=== PATIENT | female | born 1940 | race Caucasian/White ===

== ENCOUNTER 2016-09-08 17:45 | Inpatient (IN) | payer MEDICARE, OTHER ==
[~2016-09-08] VITALS: Ht 167.6 cm; Wt 78.9 kg
[2016-09-08] MEDS ORDERED: LURA60TA PO (18:54)
[2016-09-08] MEDS ORDERED: MELO-264 PO (18:54)
[2016-09-08] MEDS ORDERED: FLUO-119 PO (18:54)
[2016-09-08] MEDS ORDERED: ATOR10TA PO (18:54)
[2016-09-08] MEDS ORDERED: GABA-532 PO (18:54)
[2016-09-08] MEDS ORDERED: DIPH25CA6 PO (18:54)
[2016-09-08] MEDS ORDERED: AMLO10TA2 PO (18:54)
[2016-09-08] MEDS ORDERED: VALS1TAB50 PO (18:54)
[2016-09-08 19:02] LABS: BASOPHILS % (AUTO) 0.4 % (0.0-2.0); DIFF TOTAL % 100 %; EOSINOPHILS # (AUTO) 0.3 /CMM (0.0-0.7); HEMATOCRIT 36 % (33-45); HEMOGLOBIN 11.9 g/dL (11.5-14.8); LYMPHOCYTES # (AUTO) 1.7 /CMM (0.8-4.8); LYMPHOCYTES % (AUTO) 25.6 % (20.0-44.0); MEAN CORPUSCULAR HEMOGLOBIN 28 PG (26.0-33.0); MEAN CORPUSCULAR HGB CONC 33 g/dl (31.0-36.0); MEAN CORPUSCULAR VOLUME 84 fL (82-100); MONOCYTES # (AUTO) 0.4 /CMM (0.1-1.30); MONOCYTES % (AUTO) 6.5 % (2.0-12.0); NEUTROPHILS # (AUTO) 4.2 /CMM (1.8-8.9); NEUTROPHILS % (AUTO) 62.5 % (43.0-81.0); PLATELET COUNT (AUTO) 197 /CMM (150-450); RED BLOOD CELL COUNT(AUTO) 4.28 MIL/uL (4.0-5.2); WHITE BLOOD COUNT (AUTO) 6.6 K/uL (4.3-11.0)
[2016-09-08 19:16] LABS: ANION GAP 14 (5-14); CALCIUM, SERUM 9.5 mg/dL (8.5-10.1); CARBON DIOXIDE 25 mmol/L (21-32); CHLORIDE 107 mmol/L (98-107); CREATININE 1.7 mg/dL (0.6-1.3); GLUCOSE 107 mg/dL (74-106); POTASSIUM 4.2 mmol/L (3.5-5.1); SODIUM SERUM 142 mmol/L (136-145); UREA NITROGEN, BLOOD 26 mg/dL (7-18)
[2016-09-08 19:22] LABS: ALANINE AMINOTRANSFERASE 13 U/L (12-78); ALBUMIN 3.3 g/dL (3.4-5.0); ASPARTATE AMINOTRANSFERASE 14 U/L (15-37); BILIRUBIN,DIRECT 0.1 mg/dL (0.0-0.2); BILIRUBIN,TOTAL 0.4 mg/dL (0.2-1.0); INDIRECT BILIRUBIN 0.3 mg/dL (0.0-1.1); TOTAL PROTEIN, SERUM 7.4 g/dL (6.4-8.2)
[2016-09-08 19:23] LABS: ACETAMINOPHEN < 10 ug/ml (10-30); SALICYLATE 1.3 mg/dL (2.8-20.0)
[2016-09-08 20:32] LABS: KETONES,URINE Negative (NEGATIVE); LEUKOCYTE ESTERASE ,URINE Moderate (NEGATIVE)
[2016-09-08 20:33] LABS: ADD UA MICROSCOPIC YES
[2016-09-08 20:44] LABS: ADD URINE CULTURE YES; RBC,URINE 21-50 /HPF (0-2); WBC,URINE 21-50 /HPF (0-3)
[2016-09-08 20:50] LABS: CANNABINOID, URINE NEGATIVE (NEGATIVE); PHENCYCLIDINE SCREEN,URINE NEGATIVE (NEGATIVE)
[2016-09-08] MEDS ORDERED: TEMAZEPAM 7.5 MG CAPSULE PO PRN (22:00)
[2016-09-08] MEDS ORDERED: MAGNESIUM HYDROXIDE 30 ML UDC PO PRN (22:00)
[2016-09-08] MEDS ORDERED: ACETAMINOPHEN 325 MG TABLET PO PRN (22:00)
[2016-09-08] MEDS ORDERED: MAG HYDROX/AL HYDROX/SIMETH 30 ML UDC PO PRN (22:00)
[2016-09-08] MEDS ORDERED: clonazePAM 0.5 MG TABLET PO PRN (22:00)
[2016-09-08] MEDS ORDERED: TEMAZEPAM 7.5 MG CAPSULE ONE (22:49)
[2016-09-08] MEDS: TEMAZEPAM 7.5 MG CAPSULE PO PRN (23:10)
[2016-09-09] MEDS ORDERED: GABAPENTIN 100 MG CAPSULE PO PRN (01:00)
[2016-09-09 06:03] VITALS: BP 150/60
[2016-09-09 07:06] LABS: BASOPHILS % (AUTO) 0.3 % (0.0-2.0); EOSINOPHILS # (AUTO) 0.3 /CMM (0.0-0.7); EOSINOPHILS % (AUTO) 4.2 % (0.0-6.0); HEMATOCRIT 36 % (33-45); HEMOGLOBIN 11.8 g/dL (11.5-14.8); LYMPHOCYTES # (AUTO) 1.7 /CMM (0.8-4.8); LYMPHOCYTES % (AUTO) 26.7 % (20.0-44.0); MEAN CORPUSCULAR HEMOGLOBIN 28 PG (26.0-33.0); MEAN CORPUSCULAR HGB CONC 33 g/dl (31.0-36.0); MEAN CORPUSCULAR VOLUME 85 fL (82-100); MONOCYTES # (AUTO) 0.4 /CMM (0.1-1.30); MONOCYTES % (AUTO) 6.8 % (2.0-12.0); NEUTROPHILS # (AUTO) 3.9 /CMM (1.8-8.9); PLATELET COUNT (AUTO) 206 /CMM (150-450); RED BLOOD CELL COUNT(AUTO) 4.24 MIL/uL (4.0-5.2); WHITE BLOOD COUNT (AUTO) 6.3 K/uL (4.3-11.0)
[2016-09-09 07:12] LABS: ALBUMIN 3.3 g/dL (3.4-5.0); BILIRUBIN,TOTAL 0.4 mg/dL (0.2-1.0); CALCIUM, SERUM 9.4 mg/dL (8.5-10.1); CREATININE 1.6 mg/dL (0.6-1.3); POTASSIUM 4.4 mmol/L (3.5-5.1)
[2016-09-09 08:00] VITALS: BP 144/80
[2016-09-09] MEDS ORDERED: Fluoxetine 10 mg capsule PO SCH (09:30)
[2016-09-09] MEDS: ATORVASTATIN 10 MG TABLET PO SCH (10:36)
[2016-09-09] MEDS: MELOXICAM 7.5 MG TABLET PO SCH (10:37)
[2016-09-09] MEDS: AMLODIPINE BESYLATE 10 MG TABLET PO SCH (10:37)
[2016-09-09] MEDS: Fluoxetine 10 mg capsule PO SCH (12:40)
[2016-09-09] MEDS: OLANZAPINE 5 MG/TAB.RAPDIS PO SCH (12:40)
[2016-09-09] MEDS: HYDROCHLOROTHIAZIDE 25 MG TABLET PO SCH (12:40)
[2016-09-09] MEDS: VALSARTAN 80 MG TABLET PO SCH (12:41)
[2016-09-09 16:14] VITALS: BP 149/74
[2016-09-09 20:12] VITALS: BP 140/90
[2016-09-10 08:00] VITALS: BP 121/63
[2016-09-10] MEDS: Fluoxetine 10 mg capsule PO SCH (08:59)
[2016-09-10] MEDS: MELOXICAM 7.5 MG TABLET PO SCH (08:59)
[2016-09-10] MEDS: ATORVASTATIN 10 MG TABLET PO SCH (09:00)
[2016-09-10] MEDS: VALSARTAN 80 MG TABLET PO SCH (09:00)
[2016-09-10] MEDS: HYDROCHLOROTHIAZIDE 25 MG TABLET PO SCH (09:01)
[2016-09-10] MEDS: OLANZAPINE 5 MG/TAB.RAPDIS PO SCH (09:01)
[2016-09-10] MEDS: AMLODIPINE BESYLATE 10 MG TABLET PO SCH (09:01)
[2016-09-10 16:00] VITALS: BP 133/67
[2016-09-10] MEDS ORDERED: PHENAZOPYRIDINE HCL 200 MG TABLET PO PRN (16:00)
[2016-09-10] MEDS: LEVOFLOXACIN (250MG) 250 MG TABLET PO SCH (17:45)
[2016-09-10 20:00] VITALS: BP 128/86
[2016-09-10] MEDS: TEMAZEPAM 7.5 MG CAPSULE PO PRN (22:24)
[2016-09-11 07:23] LABS: CALCIUM, SERUM 9.1 mg/dL (8.5-10.1); CREATININE 2.3 mg/dL (0.6-1.3); POTASSIUM 4.1 mmol/L (3.5-5.1)
[2016-09-11 08:00] VITALS: BP 132/72
[2016-09-11] MEDS: Fluoxetine 10 mg capsule PO SCH (09:37)
[2016-09-11] MEDS: VALSARTAN 80 MG TABLET PO SCH (09:37)
[2016-09-11] MEDS: OLANZAPINE 5 MG/TAB.RAPDIS PO SCH (09:38)
[2016-09-11] MEDS: ATORVASTATIN 10 MG TABLET PO SCH (09:38)
[2016-09-11] MEDS: AMLODIPINE BESYLATE 10 MG TABLET PO SCH (09:38)
[2016-09-11 16:00] VITALS: BP 108/65
[2016-09-11] MEDS: LEVOFLOXACIN (250MG) 250 MG TABLET PO SCH (16:25)
[2016-09-11 20:22] VITALS: BP_SYST 136
[2016-09-11 20:23] VITALS: BP 136/88
[2016-09-11 20:30] LABS: KETONES,URINE NEGATIVE (NEGATIVE); LEUKOCYTE ESTERASE ,URINE 3+ (NEGATIVE); PH,URINE 5.5 (5.0-8.0)
[2016-09-11 20:43] LABS: ADD UA MICROSCOPIC YES
[2016-09-11 20:46] LABS: ADD URINE CULTURE YES; WBC,URINE 51-80 /HPF (0-3)
[2016-09-12 08:00] VITALS: BP 123/60
[2016-09-12] MEDS: Fluoxetine 10 mg capsule PO SCH (08:27)
[2016-09-12] MEDS: VALSARTAN 80 MG TABLET PO SCH (08:28)
[2016-09-12] MEDS: ATORVASTATIN 10 MG TABLET PO SCH (08:28)
[2016-09-12] MEDS: OLANZAPINE 5 MG/TAB.RAPDIS PO SCH (08:28)
[2016-09-12] MEDS: AMLODIPINE BESYLATE 10 MG TABLET PO SCH (08:28)
[2016-09-12 08:58] LABS: CALCIUM, SERUM 9.3 mg/dL (8.5-10.1); CREATININE 2.7 mg/dL (0.6-1.3); POTASSIUM 4.6 mmol/L (3.5-5.1)
[2016-09-12 16:00] VITALS: BP_SYST 107; BP_SYST 119; BP_DIAS 51; BP_DIAS 72
[2016-09-12] MEDS: LEVOFLOXACIN (250MG) 250 MG TABLET PO SCH (16:17)
[2016-09-12 20:00] VITALS: BP 143/71
[2016-09-13 07:18] LABS: BASOPHILS % (AUTO) 0.4 % (0.0-2.0); DIFF TOTAL % 100 %; EOSINOPHILS # (AUTO) 0.5 /CMM (0.0-0.7); EOSINOPHILS % (AUTO) 5.8 % (0.0-6.0); HEMATOCRIT 35 % (33-45); HEMOGLOBIN 11.6 g/dL (11.5-14.8); LYMPHOCYTES # (AUTO) 2.2 /CMM (0.8-4.8); LYMPHOCYTES % (AUTO) 24.8 % (20.0-44.0); MEAN CORPUSCULAR HEMOGLOBIN 28 PG (26.0-33.0); MEAN CORPUSCULAR HGB CONC 33 g/dl (31.0-36.0); MEAN CORPUSCULAR VOLUME 85 fL (82-100); MONOCYTES # (AUTO) 0.7 /CMM (0.1-1.30); MONOCYTES % (AUTO) 7.6 % (2.0-12.0); NEUTROPHILS # (AUTO) 5.4 /CMM (1.8-8.9); NEUTROPHILS % (AUTO) 61.4 % (43.0-81.0); PLATELET COUNT (AUTO) 218 /CMM (150-450); RED BLOOD CELL COUNT(AUTO) 4.15 MIL/uL (4.0-5.2); WHITE BLOOD COUNT (AUTO) 8.7 K/uL (4.3-11.0)
[2016-09-13 07:37] LABS: CALCIUM, SERUM 9.2 mg/dL (8.5-10.1); PHOSPHORUS 4.4 mg/dL (2.5-4.9); POTASSIUM 4.6 mmol/L (3.5-5.1)
[2016-09-13 08:00] VITALS: BP 134/63
[2016-09-13] MEDS: ATORVASTATIN 10 MG TABLET PO SCH (09:00)
[2016-09-13] MEDS: VALSARTAN 80 MG TABLET PO SCH (09:00)
[2016-09-13] MEDS: OLANZAPINE 5 MG/TAB.RAPDIS PO SCH (09:00)
[2016-09-13] MEDS: AMLODIPINE BESYLATE 10 MG TABLET PO SCH (09:00)
[2016-09-13] MEDS: Fluoxetine 10 mg capsule PO SCH (09:00)
[2016-09-13 16:09] VITALS: BP 116/60
[2016-09-13] MEDS: LEVOFLOXACIN (250MG) 250 MG TABLET PO SCH (17:55)
[2016-09-13 19:57] VITALS: BP 122/75
[2016-09-13] MEDS: TEMAZEPAM 7.5 MG CAPSULE PO PRN (22:42)
[2016-09-14 08:00] VITALS: BP 105/60
[2016-09-14] MEDS: Fluoxetine 10 mg capsule PO SCH (08:53)
[2016-09-14] MEDS: OLANZAPINE 5 MG/TAB.RAPDIS PO SCH (08:53)
[2016-09-14] MEDS: ATORVASTATIN 10 MG TABLET PO SCH (08:54)
[2016-09-14] MEDS: VALSARTAN 80 MG TABLET PO SCH (08:55)
[2016-09-14] MEDS: AMLODIPINE BESYLATE 10 MG TABLET PO SCH ×2 (08:55→17:55)
[2016-09-14 16:00] VITALS: BP 138/88
[2016-09-14] MEDS: LEVOFLOXACIN (250MG) 250 MG TABLET PO SCH (17:55)
[2016-09-14 19:53] VITALS: BP 142/66
[2016-09-14] MEDS: TEMAZEPAM 7.5 MG CAPSULE PO PRN (21:29)
[2016-09-15 07:40] LABS: CALCIUM, SERUM 9.2 mg/dL (8.5-10.1); PHOSPHORUS 4.8 mg/dL (2.5-4.9); POTASSIUM 4.2 mmol/L (3.5-5.1)
[2016-09-15 08:00] VITALS: BP 118/68
[2016-09-15] MEDS: ATORVASTATIN 10 MG TABLET PO SCH (08:31)
[2016-09-15] MEDS: Fluoxetine 10 mg capsule PO SCH (08:31)
[2016-09-15] MEDS: OLANZAPINE 5 MG/TAB.RAPDIS PO SCH (08:31)
[2016-09-15] MEDS: AMLODIPINE BESYLATE 10 MG TABLET PO SCH (08:33)
[2016-09-15 12:24] LABS: HEPATITIS C VIRUS AB 0.1 s/co ratio (0.0-0.9)
[2016-09-15 14:16] LABS: *ANAANTI-SCLERODERMA-70 AB <0.2 AI (0.0-0.9)
[2016-09-15 16:00] VITALS: BP 126/72
[2016-09-15] MEDS: LEVOFLOXACIN (250MG) 250 MG TABLET PO SCH (16:54)
[2016-09-15 20:00] VITALS: BP 125/75
[2016-09-15] MEDS: TEMAZEPAM 7.5 MG CAPSULE PO PRN (22:14)
[2016-09-16 04:12] LABS: COMPLEMENT C4, SERUM 36 mg/dL (14-44)
[2016-09-16 07:17] LABS: BASOPHILS % (AUTO) 0.6 % (0.0-2.0); DIFF TOTAL % 100 %; EOSINOPHILS # (AUTO) 0.4 /CMM (0.0-0.7); EOSINOPHILS % (AUTO) 5.3 % (0.0-6.0); HEMATOCRIT 34 % (33-45); HEMOGLOBIN 11.1 g/dL (11.5-14.8); LYMPHOCYTES # (AUTO) 1.6 /CMM (0.8-4.8); LYMPHOCYTES % (AUTO) 21.3 % (20.0-44.0); MEAN CORPUSCULAR HEMOGLOBIN 28 PG (26.0-33.0); MEAN CORPUSCULAR HGB CONC 33 g/dl (31.0-36.0); MEAN CORPUSCULAR VOLUME 85 fL (82-100); MONOCYTES # (AUTO) 0.6 /CMM (0.1-1.30); MONOCYTES % (AUTO) 7.8 % (2.0-12.0); PLATELET COUNT (AUTO) 203 /CMM (150-450); RED BLOOD CELL COUNT(AUTO) 3.97 MIL/uL (4.0-5.2); WHITE BLOOD COUNT (AUTO) 7.7 K/uL (4.3-11.0)
[2016-09-16 07:36] LABS: CALCIUM, SERUM 8.7 mg/dL (8.5-10.1); POTASSIUM 4.3 mmol/L (3.5-5.1)
[2016-09-16 08:39] LABS: CREATININE 3.3 mg/dL (0.6-1.3)
[2016-09-16 09:34] VITALS: BP 116/56
[2016-09-16] MEDS: Fluoxetine 10 mg capsule PO SCH (09:45)
[2016-09-16] MEDS: ATORVASTATIN 10 MG TABLET PO SCH (09:45)
[2016-09-16] MEDS: OLANZAPINE 5 MG/TAB.RAPDIS PO SCH (09:45)
[2016-09-16 16:40] VITALS: BP 110/60
[2016-09-16] MEDS: AMLODIPINE BESYLATE 10 MG TABLET PO SCH (16:54)
[2016-09-16 19:59] VITALS: BP 103/47
[2016-09-16] MEDS: TEMAZEPAM 7.5 MG CAPSULE PO PRN (20:54)
[2016-09-17 07:14] LABS: BASOPHILS % (AUTO) 0.5 % (0.0-2.0); DIFF TOTAL % 100 %; EOSINOPHILS # (AUTO) 0.5 /CMM (0.0-0.7); EOSINOPHILS % (AUTO) 6.6 % (0.0-6.0); HEMATOCRIT 33 % (33-45); HEMOGLOBIN 10.9 g/dL (11.5-14.8); LYMPHOCYTES # (AUTO) 1.9 /CMM (0.8-4.8); LYMPHOCYTES % (AUTO) 22.8 % (20.0-44.0); MEAN CORPUSCULAR HEMOGLOBIN 28 PG (26.0-33.0); MEAN CORPUSCULAR HGB CONC 33 g/dl (31.0-36.0); MEAN CORPUSCULAR VOLUME 84 fL (82-100); MONOCYTES # (AUTO) 0.8 /CMM (0.1-1.30); MONOCYTES % (AUTO) 9.3 % (2.0-12.0); NEUTROPHILS % (AUTO) 60.8 % (43.0-81.0); PLATELET COUNT (AUTO) 198 /CMM (150-450); RED BLOOD CELL COUNT(AUTO) 3.92 MIL/uL (4.0-5.2); WHITE BLOOD COUNT (AUTO) 8.2 K/uL (4.3-11.0)
[2016-09-17 07:36] LABS: CALCIUM, SERUM 9.1 mg/dL (8.5-10.1); CREATININE 3.1 mg/dL (0.6-1.3); PHOSPHORUS 4.5 mg/dL (2.5-4.9); POTASSIUM 4.1 mmol/L (3.5-5.1)
[2016-09-17 08:00] VITALS: BP 110/55
[2016-09-17] MEDS: OLANZAPINE 5 MG/TAB.RAPDIS PO SCH (08:35)
[2016-09-17] MEDS: ATORVASTATIN 10 MG TABLET PO SCH (08:35)
[2016-09-17] MEDS: Fluoxetine 10 mg capsule PO SCH (08:35)
[2016-09-17] MEDS: AMLODIPINE BESYLATE 10 MG TABLET PO SCH (08:35)
[2016-09-17 16:00] VITALS: BP 122/71
[2016-09-17 20:28] VITALS: BP 130/62
[2016-09-18 06:07] LABS: BASOPHILS % (AUTO) 0.2 % (0.0-2.0); DIFF TOTAL % 100 %; EOSINOPHILS # (AUTO) 0.6 /CMM (0.0-0.7); EOSINOPHILS % (AUTO) 6.6 % (0.0-6.0); HEMATOCRIT 34 % (33-45); HEMOGLOBIN 11.2 g/dL (11.5-14.8); LYMPHOCYTES # (AUTO) 2.1 /CMM (0.8-4.8); LYMPHOCYTES % (AUTO) 24.1 % (20.0-44.0); MEAN CORPUSCULAR HEMOGLOBIN 28 PG (26.0-33.0); MEAN CORPUSCULAR HGB CONC 33 g/dl (31.0-36.0); MEAN CORPUSCULAR VOLUME 85 fL (82-100); MONOCYTES # (AUTO) 0.6 /CMM (0.1-1.30); MONOCYTES % (AUTO) 6.6 % (2.0-12.0); NEUTROPHILS # (AUTO) 5.4 /CMM (1.8-8.9); NEUTROPHILS % (AUTO) 62.5 % (43.0-81.0); PLATELET COUNT (AUTO) 206 /CMM (150-450); RED BLOOD CELL COUNT(AUTO) 4.01 MIL/uL (4.0-5.2); WHITE BLOOD COUNT (AUTO) 8.6 K/uL (4.3-11.0)
[2016-09-18 06:20] LABS: CALCIUM, SERUM 9.1 mg/dL (8.5-10.1); CREATININE 2.7 mg/dL (0.6-1.3); PHOSPHORUS 4.4 mg/dL (2.5-4.9); POTASSIUM 4.7 mmol/L (3.5-5.1)
[2016-09-18 08:00] VITALS: BP 116/65
[2016-09-18] MEDS: ATORVASTATIN 10 MG TABLET PO SCH (08:36)
[2016-09-18] MEDS: AMLODIPINE BESYLATE 10 MG TABLET PO SCH (08:39)
[2016-09-18] MEDS: Fluoxetine 10 mg capsule PO SCH (08:39)
[2016-09-18] MEDS ORDERED: OLANZAPINE 5 MG/TAB.RAPDIS PO SCH (09:00)
[2016-09-18 16:22] VITALS: BP 123/62
[2016-09-18] MEDS: TEMAZEPAM 7.5 MG CAPSULE PO PRN (20:51)
[2016-09-18 23:49] VITALS: BP 127/75
[2016-09-19 08:00] VITALS: BP 117/65
[2016-09-19] MEDS: ATORVASTATIN 10 MG TABLET PO SCH (09:00)
[2016-09-19] MEDS: Fluoxetine 10 mg capsule PO SCH (09:00)
[2016-09-19] MEDS: OLANZAPINE 5 MG/TAB.RAPDIS PO SCH (09:00)
[2016-09-19] MEDS: AMLODIPINE BESYLATE 10 MG TABLET PO SCH (09:00)
[2016-09-19 10:19] LABS: VIT D, 25-HYDROXY 8.7 ng/mL (30.0-100.0)
[2016-09-19 16:02] VITALS: BP 116/60
[2016-09-19 20:00] VITALS: BP 121/64
[2016-09-19] MEDS: TEMAZEPAM 7.5 MG CAPSULE PO PRN (20:44)
[2016-09-20 07:41] LABS: BASOPHILS % (AUTO) 0.5 % (0.0-2.0); DIFF TOTAL % 100 %; EOSINOPHILS # (AUTO) 0.4 /CMM (0.0-0.7); EOSINOPHILS % (AUTO) 5.2 % (0.0-6.0); HEMATOCRIT 34 % (33-45); HEMOGLOBIN 11.3 g/dL (11.5-14.8); LYMPHOCYTES # (AUTO) 2.1 /CMM (0.8-4.8); LYMPHOCYTES % (AUTO) 28.1 % (20.0-44.0); MEAN CORPUSCULAR HEMOGLOBIN 28 PG (26.0-33.0); MEAN CORPUSCULAR HGB CONC 33 g/dl (31.0-36.0); MEAN CORPUSCULAR VOLUME 85 fL (82-100); MONOCYTES # (AUTO) 0.7 /CMM (0.1-1.30); MONOCYTES % (AUTO) 8.9 % (2.0-12.0); NEUTROPHILS # (AUTO) 4.3 /CMM (1.8-8.9); NEUTROPHILS % (AUTO) 57.3 % (43.0-81.0); PLATELET COUNT (AUTO) 201 /CMM (150-450); RED BLOOD CELL COUNT(AUTO) 4.07 MIL/uL (4.0-5.2); WHITE BLOOD COUNT (AUTO) 7.4 K/uL (4.3-11.0)
[2016-09-20 08:03] LABS: CALCIUM, SERUM 9.3 mg/dL (8.5-10.1); PHOSPHORUS 3.9 mg/dL (2.5-4.9); POTASSIUM 4.5 mmol/L (3.5-5.1)
[2016-09-20 08:17] VITALS: BP 100/60
[2016-09-20] MEDS: Fluoxetine 10 mg capsule PO SCH (08:58)
[2016-09-20] MEDS: OLANZAPINE 5 MG/TAB.RAPDIS PO SCH (08:58)
[2016-09-20] MEDS: ATORVASTATIN 10 MG TABLET PO SCH (08:58)
[2016-09-20] MEDS: AMLODIPINE BESYLATE 10 MG TABLET PO SCH ×2 (09:00→18:49)
[2016-09-20] MEDS ORDERED: ERGOCALCIFEROL (VITAMIN D 2) 50,000 UNIT CAPSULE PO SCH (10:00)
[2016-09-20 16:00] VITALS: BP 132/60
[2016-09-20 20:00] VITALS: BP 112/74
[2016-09-20] MEDS: TEMAZEPAM 7.5 MG CAPSULE PO PRN (21:16)
[2016-09-21 08:00] VITALS: BP 128/73
[2016-09-21] MEDS: ATORVASTATIN 10 MG TABLET PO SCH (08:59)
[2016-09-21] MEDS: OLANZAPINE 5 MG/TAB.RAPDIS PO SCH (08:59)
[2016-09-21] MEDS: Fluoxetine 10 mg capsule PO SCH (08:59)
[2016-09-21 09:01] VITALS: BP 128/73
[2016-09-21] MEDS: AMLODIPINE BESYLATE 10 MG TABLET PO SCH (09:01)
== END 2016-09-21 15:30 | disposition home or self-care (01) | DRG 885 ==
LOC: ER 17:49 → GPS 20:07
PROVIDERS: ADMIT Psychiatry & Neurology Psychiatry; ATTEND Family Medicine
DX: F33.3 Major depressive disorder, recurrent, severe with psychotic symptoms (principal); N17.0 Acute kidney failure with tubular necrosis; N18.9 Chronic kidney disease, unspecified; N39.0 Urinary tract infection, site not specified; Z91.19 Patient's noncompliance with other medical treatment and regimen; F29 Unspecified psychosis not due to a substance or known physiological condition; R31.29 Other microscopic hematuria; I12.9 Hypertensive chronic kidney disease with stage 1 through stage 4 chronic kidney disease, or unspecified chronic kidney disease; E78.5 Hyperlipidemia, unspecified; G62.9 Polyneuropathy, unspecified; E66.9 Obesity, unspecified
CPT/HCPCS: 36415; 76770-TC; 80048-TC; 80053-TC; 80061-TC; 80076-TC; 80305; 81000-TC; 82306; 82652; 83735-TC; 83970; 84100-TC; 85025-TC; 85652-TC; 86225; 86235; 86706; 86803; 87081-TC; 87086-TC; 87340; 97001-TC; A4606; G6038-TC; G6039-TC; G6040-TC; Z7610

== ENCOUNTER 2021-06-06 14:53 | Inpatient (IN) | payer MEDICARE, OTHER ==
[~2021-06-06] VITALS: Ht 167.6 cm; Wt 81.6 kg
[~2021-06-06 14:53] MED LIST: AMLO-213 PO; ATOR10TA PO; DIPH25CA51 PO; FLUO10CA29 PO; GABA-532 PO; LURA60TA3 PO; MELO-107 PO; VALS1TAB6 PO
--- NOTE | 2021-06-06 14:55 | NUR ---
PT AYUSH DE LA ROSA FROM A PRIVATE RESIDENT. ALREADY ON A 5150 HOLD FOR GD AND DTS WRITTEN 06/05/21 AT 1315. PT IS AAOX3. STABLE VITALS UPON ASSESSMENT. PT VERBALLY RESPONSIVE. DENIES ANY PAIN AND DISCOMFORT. AWAITING MD HARDING.
--- NOTE | 2021-06-06 15:07 | NUR ---
DR FLORES AT BEDSIDE FOR EVAL.
[2021-06-06] MEDS ORDERED: ATEN25TA PO (15:34)
[2021-06-06] MEDS ORDERED: OLAN7.5T3 PO (15:34)
[2021-06-06] MEDS ORDERED: OMEP20CA15 PO (15:34)
[2021-06-06] MEDS ORDERED: FOLI0.8C PO (15:34)
[2021-06-06] MEDS ORDERED: METF-440 PO (15:34)
--- NOTE | 2021-06-06 15:35 | NUR ---
STRATEGIC INTELLIGENCE OFFICER AT BEDSIDE FOR BLOOD DRAW.
--- NOTE | 2021-06-06 15:40 | NUR ---
REFUSING TO PROVIDE URINE AT THIS TIME.
[2021-06-06 15:43] LABS: BASOPHILS % (AUTO) 0.5 % (0.0-2.0); EOSINOPHILS % (AUTO) 3.1 % (0.0-6.0); HEMATOCRIT 36 % (33-45); HEMOGLOBIN 11.3 g/dL (11.5-14.8); LYMPHOCYTES # (AUTO) 2.3 K/uL (0.8-4.8); LYMPHOCYTES % (AUTO) 30.9 % (20.0-44.0); MEAN CORPUSCULAR HGB CONC 32 g/dl (31.0-36.0); MEAN CORPUSCULAR VOLUME 91 fL (82-100); MONOCYTES # (AUTO) 0.8 K/uL (0.1-1.30); MONOCYTES % (AUTO) 10.6 % (2.0-12.0); NEUTROPHILS # (AUTO) 4.2 K/uL (1.8-8.9); NEUTROPHILS % (AUTO) 54.9 % (43.0-81.0); PLATELET COUNT (AUTO) 199 K/uL (150-450); RED BLOOD CELL COUNT(AUTO) 3.93 MIL/uL (4.0-5.2); WHITE BLOOD COUNT (AUTO) 7.6 K/uL (4.3-11.0)
[2021-06-06 15:53] LABS: CALCIUM, SERUM 9.3 mg/dL (8.5-10.1); CARBON DIOXIDE 26 mmol/L (21-32); CHLORIDE 106 mmol/L (98-107); CREATININE 1.7 mg/dL (0.6-1.3); GLUCOSE 146 mg/dL (74-106); POTASSIUM 4.2 mmol/L (3.5-5.1); SODIUM SERUM 142 mmol/L (136-145); UREA NITROGEN, BLOOD 19 mg/dL (7-18)
[2021-06-06 15:59] LABS: ACETAMINOPHEN 0 ug/ml (10-30); ALANINE AMINOTRANSFERASE 39 U/L (12-78); ALBUMIN 3.7 g/dL (3.4-5.0); ALCOHOL, BLOOD < 3 mg/dL (0-0); ALKALINE PHOSPHATASE 76 U/L (46-116); ASPARTATE AMINOTRANSFERASE 28 U/L (15-37); BILIRUBIN,DIRECT 0.1 mg/dL (0.0-0.2); BILIRUBIN,TOTAL 0.2 mg/dL (0.2-1.0); TOTAL PROTEIN, SERUM 7.6 g/dL (6.4-8.2)
--- NOTE | 2021-06-06 17:51 | NUR ---
PT STILL UNABLE TO PROVIDE URINE SAMPLE UPON MULTIPLE REQUEST. DR FLORES AWARE.
--- NOTE | 2021-06-06 18:12 | NUR ---
ASSIGNED BED 213-B
--- NOTE | 2021-06-06 18:20 | NUR ---
REPORT GIVEN TO ELIZABETH BUNCH FOR DAVID.
[2021-06-06] MEDS: METFORMIN 500 MG TABLET PO SCH (19:30)
--- NOTE | 2021-06-06 19:45 | NUR ---
RN NOTE DR. RISO NOTIFIED VIA PHONE ABOUT PATIENT'S NEW ADMISSION AT [facility] WITH NEW ORDERS. NOTED & CARRIED OUT.
[2021-06-06 20:00] VITALS: BP 146/77
[2021-06-06] MEDS ORDERED: MAGNESIUM HYDROXIDE 30 ML UDC PO PRN (20:00)
[2021-06-06] MEDS ORDERED: BLOOD SUGAR DIAGNOSTIC 1 EACH STRIP IN ONE (20:00)
[2021-06-06] MEDS ORDERED: LORAZEPAM 0.5 MG TABLET PO PRN (20:00)
[2021-06-06] MEDS ORDERED: MAG HYDROX/AL HYDROX/SIMETH 30 ML UDC PO PRN (20:00)
[2021-06-06] MEDS: ACETAMINOPHEN 325 MG TABLET PO PRN (20:33)
--- NOTE | 2021-06-06 20:44 | NUR ---
RN NOTE: PAIN PATIENT C/O GENERALIZED BODY PAIN & REQUESTED TO GET TYLENOL. PRN TYLENOL 650 MG PO ADMINISTERED. WILL CONTINUE TO MONITOR.
--- NOTE | 2021-06-06 20:47 | NUR ---
RN NOTE: HELD METFORMIN PATIENT'S BLOOD SUGAR LEVEL IS 97 MG/DL. METFORMIN HELD TO PREVENT HYPOGLYCEMIA. WILL CONTINUE TO MONITOR.
--- NOTE | 2021-06-06 20:50 | NUR ---
PATIENT ARRIVED ON THIS UNIT AT 1845 VIA STRETCHER WITH 2 NURSES ESCORTS. PATIENT ADMITTED ON A 5150 HOLD FOR DTS AND GD. PER 5150 HOLD PATIENT'S SISTER REQUESTED PMRT TO EVALUATE THE PATIENT. UPON INTERVIEW PATIENT STATED," I AM READY FOR THE LORD TO TAKE ME." AND HAS DEMONSTRATED AMBIVALENCE TO MEDICAL CARE WHEN SHE REFUSED TO HAVE THE PHYSICIANS EVALUATE HER YESTERDAY AFTER SHE WAS BROUGHT TO THE ER FOR SHORTNESS OF BREATH. PATIENT ALSO ACKNOWLEDGES THAT SHE TAKES HER MEDICINES WHEN SHE FEELS LIKE IT RATHER THAN SHE IS PRESCRIBED. THERE ARE CONCERNS THAT THE PATIENT IS NEGLIGENT HER NEEDS PART OF A LACK OF MOTIVATION & ENGAGEMENT IN LIFE DUE TO HER MENTAL HEALTH. UPON FACE TO FACE ASSESSMENT PATIENT IS NOTED TO BEING A & O X 3 BUT FORGETFUL AT TIMES, DISHEVELED, DISORGANIZED, WITHDRAWN, DEPRESSED, UNCOOPERATIVE, ANXIOUS, EASILY IRRITABLE/AGITATED, NEEDS REDIRECTION & REASSURANCE. PATIENT IS CURRENTLY LYING IN BED AWAKE, HAS NO S/S OR COMPLAINTS OF PAIN. PATIENT IS DISPLAYING NO S/S OF APPARENT DISTRESS OR SOB. PATIENT BREATHING IS UNLABORED WITH EQUAL RISE AND FALL OF THE CHEST. ON ROOM AIR. PATIENT DENIES SI/HI AT THIS TIME. PATIENT REFUSED TO SIGNS ANY PAPER WORK AND STATED," I SHOULDN'T BE HERE, I HAVE THE RIGHT TO MAKE MY OWN DECISIONS." PATIENT ADVISED OF HER HOLD AND PATIENT RIGHTS BOOKLET GIVEN. PATIENT IS UNDER THE PSYCHIATRIC CARE OF DR. RIOS AND THE MEDICAL CARE OF DR MACIAS. PATIENT BELONGINGS WERE INVENTORIED AND CHECKED FOR CONTRABAND. ALL CONTRABAND REMOVED AND STORED IN PATIENT HALLWAY LOCKER. PATIENT ADVANCED DIRECTIVES PREFERENCE, IMMUNIZATIONS QUESTIONER, NECESSARY PAPERWORK COMPLETED. PATIENT REFUSED SKIN ASSESSMENT & TO GIVE COVID VACCINE INFORMATION. PATIENT ORIENTATED TO ROOM, FLOOR, AND STAFF. PATIENT EDUCATED ON THE USE OF THE CALL AMOR. PATIENT BED SIDE RAILS ARE UP X 2 FOR SAFETY. PATIENT BED IS LOCKED, LOW, BED ALARM ON. I WILL CONTINUE TO MONITOR THIS PATIENT Q 15 MIN WITH THE HELP OF STAFF TO MAINTAIN SAFETY.
[2021-06-06] MEDS: ATORVASTATIN 10 MG TABLET PO SCH (21:33)
[2021-06-06] MEDS: ZOLPIDEM TARTRATE 5 MG TABLET PO PRN (21:33)
--- NOTE | 2021-06-06 21:35 | NUR ---
RN NOTE: INSOMNIA PATIENT VERBALIZED THAT SHE IS UNABLE TO SLEEP & REQUESTED TO TAKE SLEEPING MEDICINE. PRN AMBIEN 5 MG PO ADMINISTERED.
[2021-06-07 06:39] LABS: BASOPHILS % (AUTO) 0.8 % (0.0-2.0); EOSINOPHILS % (AUTO) 3.1 % (0.0-6.0); HEMATOCRIT 34 % (33-45); LYMPHOCYTES # (AUTO) 1.6 K/uL (0.8-4.8); LYMPHOCYTES % (AUTO) 29.1 % (20.0-44.0); MEAN CORPUSCULAR HGB CONC 32 g/dl (31.0-36.0); MEAN CORPUSCULAR VOLUME 91 fL (82-100); MONOCYTES # (AUTO) 0.7 K/uL (0.1-1.30); MONOCYTES % (AUTO) 12.2 % (2.0-12.0); NEUTROPHILS # (AUTO) 2.9 K/uL (1.8-8.9); NEUTROPHILS % (AUTO) 54.8 % (43.0-81.0); PLATELET COUNT (AUTO) 164 K/uL (150-450); RED BLOOD CELL COUNT(AUTO) 3.73 MIL/uL (4.0-5.2); WHITE BLOOD COUNT (AUTO) 5.3 K/uL (4.3-11.0)
[2021-06-07 07:06] LABS: CHOLESTEROL 164 mg/dL (<200); HDL CHOLESTEROL 87 mg/dL (40-60); LDL 57 mg/dL (0-99); TRIGLYCERIDES 120 mg/dL (30-150)
[2021-06-07 07:08] LABS: ALANINE AMINOTRANSFERASE 34 U/L (12-78); ALBUMIN 3.3 g/dL (3.4-5.0); ALKALINE PHOSPHATASE 70 U/L (46-116); ASPARTATE AMINOTRANSFERASE 24 U/L (15-37); BILIRUBIN,TOTAL 0.4 mg/dL (0.2-1.0); CALCIUM, SERUM 8.6 mg/dL (8.5-10.1); CARBON DIOXIDE 27 mmol/L (21-32); CHLORIDE 107 mmol/L (98-107); CREATININE 1.5 mg/dL (0.6-1.3); GLUCOSE 87 mg/dL (74-106); POTASSIUM 4.6 mmol/L (3.5-5.1); SODIUM SERUM 141 mmol/L (136-145); TOTAL PROTEIN, SERUM 6.8 g/dL (6.4-8.2); UREA NITROGEN, BLOOD 18 mg/dL (7-18)
--- NOTE | 2021-06-07 07:30 | NUR ---
RN NOTE PATIENT REFUSED TO CALL ANY FAMILY MEMBER TO NOTIFY ABOUT HER ADMISSION AT [facility] & STATED," MY SISTER KNOWS THAT I AM HERE, YOU DON'T NEED TO CALL ANYONE."
[2021-06-07 08:00] VITALS: BP 149/77
[2021-06-07] MEDS: METFORMIN 500 MG TABLET PO SCH ×2 (08:00→17:50)
[2021-06-07] MEDS: PANTOPRAZOLE 40 MG TABLET.DR PO SCH (09:20)
[2021-06-07] MEDS: FOLIC ACID 1 MG TABLET PO SCH (09:20)
[2021-06-07] MEDS: ATENOLOL 25 MG TABLET PO SCH (09:21)
[2021-06-07] MEDS: ACETAMINOPHEN 325 MG TABLET PO PRN (13:25)
--- NOTE | 2021-06-07 13:28 | NUR ---
given tylenol for say. leg pain.
[2021-06-07 16:00] VITALS: BP 152/78
[2021-06-07] MEDS: OLANZAPINE ZYDIS 5 MG TAB.RAPDIS PO SCH (17:50)
[2021-06-07] MEDS: GABAPENTIN 100 MG CAPSULE PO SCH (17:50)
--- NOTE | 2021-06-07 19:15 | NUR ---
RN NOTE PATIENT'S SISTER KAYLA CALLED & SPOKE TO AM RN. PER KAYLA, SHE IS A CONDUIT INSTALLER TO THE PATIENT & WANTED TO GET UPDATES ABOUT PATIENT'S CURRENT HEALTH CONDITION. BENDING ROLL HAND VERIFIED WITH THE PATIENT IF SHE IS PERMITS THE STAFF TO RELEASE HER HEALTH UPDATES TO HER SISTER BUT PATIENT STATED," I DON'T WANT ANYONE TO KNOW WHERE I AM & I AM HERE BECAUSE OF MY SISTER, I TAKE CARE OF MYSELF AT HOME." PATIENT INFORMED THE NURSE NOT TO RELEASE ANY INFORMATION TO ANY OF HER FAMILY MEMBER. AM RN RESPECTED PATIENT'S WISH AND INFORMED KAYLA TO DISCUSS THEIR CONCERN WITH THE ELECTRIC METER TECHNICIAN IN AND KAYLA AGREED.
[2021-06-07 19:38] VITALS: BP 157/84
[2021-06-07] MEDS: ZOLPIDEM TARTRATE 5 MG TABLET PO PRN (20:28)
[2021-06-07] MEDS: ATORVASTATIN 10 MG TABLET PO SCH (21:15)
[2021-06-07 21:43] LABS: BILIRUBIN,URINE NEGATIVE (NEGATIVE); COLOR,URINE YELLOW (YELLOW); LEUKOCYTE ESTERASE ,URINE NEGATIVE (NEGATIVE); NITRITE, URINE NEGATIVE (NEGATIVE); PROTEIN,URINE TRACE mg/dl (NEGATIVE); UGLUCOSE NEGATIVE (NEGATIVE); UROBILINOGEN,URINE 0.2 EU/dL (0.2)
--- NOTE | 2021-06-07 21:55 | NUR ---
Urine specimen obtain and picked up by lab at [id number]
[2021-06-07 22:00] LABS: BACTERIA,URINE None seen /HPF (None Seen); WBC,URINE 0-2 /HPF (0-3)
[2021-06-07 22:03] LABS: EOSINOPHIL,URINE None Seen
[2021-06-08 01:42] LABS: CREATININE, URINE 35.9 MG/DL (30.0-125.0); URINE TOTAL PROTEIN 43.1 mg/dL (0-11.9)
[2021-06-08] MEDS: ACETAMINOPHEN 325 MG TABLET PO PRN ×2 (06:14→21:18)
[2021-06-08 08:00] VITALS: BP 160/89
[2021-06-08] MEDS: OLANZAPINE ZYDIS 5 MG TAB.RAPDIS PO SCH ×2 (08:24→17:14)
[2021-06-08] MEDS: PANTOPRAZOLE 40 MG TABLET.DR PO SCH (08:24)
[2021-06-08] MEDS: METFORMIN 500 MG TABLET PO SCH ×2 (08:24→17:52)
[2021-06-08] MEDS: GABAPENTIN 100 MG CAPSULE PO SCH ×3 (08:24→17:14)
[2021-06-08] MEDS: FOLIC ACID 1 MG TABLET PO SCH (08:24)
[2021-06-08] MEDS: ATENOLOL 25 MG TABLET PO SCH (08:25)
[2021-06-08] MEDS: FLUOXETINE HCL 20 MG CAPSULE PO SCH (08:47)
[2021-06-08 16:00] VITALS: BP 155/85
[2021-06-08 19:31] VITALS: BP 146/73
[2021-06-08] MEDS: ATORVASTATIN 10 MG TABLET PO SCH (21:09)
[2021-06-08] MEDS: ZOLPIDEM TARTRATE 5 MG TABLET PO PRN (21:18)
[2021-06-09] MEDS: ACETAMINOPHEN 325 MG TABLET PO PRN ×2 (06:37→21:53)
[2021-06-09 08:00] VITALS: BP 150/97
[2021-06-09] MEDS: OLANZAPINE ZYDIS 5 MG TAB.RAPDIS PO SCH ×2 (08:05→16:30)
[2021-06-09] MEDS: GABAPENTIN 100 MG CAPSULE PO SCH ×3 (08:05→16:30)
[2021-06-09] MEDS: METFORMIN 500 MG TABLET PO SCH ×2 (08:05→17:04)
[2021-06-09] MEDS: FLUOXETINE HCL 20 MG CAPSULE PO SCH (08:05)
[2021-06-09] MEDS: FOLIC ACID 1 MG TABLET PO SCH (08:05)
[2021-06-09] MEDS: ATENOLOL 25 MG TABLET PO SCH (08:06)
[2021-06-09] MEDS: PANTOPRAZOLE 40 MG TABLET.DR PO SCH (08:06)
--- NOTE | 2021-06-09 09:26 | NUR ---
Treatment Plan: Pt refused to sign treatment plan and was unable to maintain proper eye contact. Patient was staring at the wall and refusing to answer any questions.
--- NOTE | 2021-06-09 09:26 | NUR ---
BEBO Initial Discharge Plan: Patient currently resides at [address] [place] [address]; ([phone]). Patient lives with sister Harshad ([phone]). BEBO will coordinate discharge plan with pt and MD.
--- NOTE | 2021-06-09 11:03 | NUR ---
BEBO Family Contact: BEBO spoke with patient's sister Harshad ([phone]) and discussed treatment/discharge plan. Sister stated that pt's DPOA was her son who . She reported that both her sons last year. Sister expressed that she is unable to take care of pt as this time and would want pt to go to a nursing facility. She expressed that she is overwhelmed. BEBO will discuss this with .
[2021-06-09 16:00] VITALS: BP 151/74
[2021-06-09 20:00] VITALS: BP 159/101
[2021-06-09 20:20] VITALS: BP 159/101
[2021-06-09] MEDS: ATORVASTATIN 10 MG TABLET PO SCH (21:33)
[2021-06-09] MEDS: ZOLPIDEM TARTRATE 5 MG TABLET PO PRN (21:36)
--- NOTE | 2021-06-09 21:40 | NUR ---
RN NOTE: INSOMNIA PATIENT VERBALIZED THAT SHE IS UNABLE TO SLEEP & REQUESTED TO TAKE SLEEPING MEDICINE. PRN AMBIEN 5 MG PO ADMINISTERED.
[2021-06-09 21:45] VITALS: BP 144/89
--- NOTE | 2021-06-09 21:55 | NUR ---
RN NOTE: LOWER BACK PAIN PATIENT C/O LOWER BACK PAIN 11/13 & REQUESTED TO GET TYLENOL. PRN TYLENOL 650 MG PO ADMINISTERED. WILL CONTINUE TO MONITOR.
[2021-06-10] MEDS: PANTOPRAZOLE 40 MG TABLET.DR PO SCH (07:45)
[2021-06-10 08:00] VITALS: BP 160/72
[2021-06-10] MEDS: METFORMIN 500 MG TABLET PO SCH ×2 (08:00→17:23)
[2021-06-10] MEDS: OLANZAPINE ZYDIS 5 MG TAB.RAPDIS PO SCH ×2 (08:51→17:23)
[2021-06-10] MEDS: GABAPENTIN 100 MG CAPSULE PO SCH ×3 (08:51→17:23)
[2021-06-10] MEDS: ATENOLOL 25 MG TABLET PO SCH (08:51)
[2021-06-10] MEDS: FOLIC ACID 1 MG TABLET PO SCH (08:51)
[2021-06-10] MEDS: FLUOXETINE HCL 20 MG CAPSULE PO SCH (08:51)
--- NOTE | 2021-06-10 09:00 | NUR ---
RN NOTES PATIENT REFUSED TO EAT BREAKFAST EXPLAINED THE RISK AND BENEFITS. PATIENT IS STILL REFUSING WILL CONTINUE TO MONITOR.
--- NOTE | 2021-06-10 11:03 | NUR ---
RN NOTES INITIATED OFFERING FOOD, PATIENT REFUSED EXPLAINED THE RISK AND BENEFITS. PATIENT IS STILL REFUSING WILL CONTINUE TO MONITOR.
--- NOTE | 2021-06-10 12:24 | NUR ---
RN NOTES PATIENT REQUEST FRESH PINEAPPLE AND WAS GIVEN. PATIENT FINISHED IT.
--- NOTE | 2021-06-10 12:32 | NUR ---
SW Note: SW spoke with pt and expressed that pt's sister is unable to take care of pt at this time and would need a SNF. Pt stated she would talk to her sister before making any decisions.
--- NOTE | 2021-06-10 14:22 | NUR ---
Court Hearing: Patient's court hearing for 1094 was upheld for GD.
--- NOTE | 2021-06-10 15:32 | NUR ---
[facility] Corporate Paralegal: received a call from returned case inspector Deepak May from [facility] (C: [phone]) (Office: [phone]) who stated pt would need a nursing facility and that pt presents well. Deepak stated he follows pts at [facility].
[2021-06-10 16:00] VITALS: BP 130/55
[2021-06-10 20:10] VITALS: BP 132/71
[2021-06-10 20:23] VITALS: BP 132/71
[2021-06-10] MEDS: ATORVASTATIN 10 MG TABLET PO SCH (21:05)
--- NOTE | 2021-06-11 07:01 | NUR ---
RN NOTE PATIENT SLEPT WELL AT NIGHT. NO BEHAVIOR EPISODE NOTED. PATIENT CALM, COOPERATIVE & REDIRECTABLE AT NIGHT. REFUSES TO EAT SNACKS BUT HAD ORANGE JUICE & TOLERATED WELL. PATIENT NEEDS PO INTAKE ENCOURAGEMENT. WILL ENDORSE TO AM RN FOR CLOSE MONITORING.
[2021-06-11 08:00] VITALS: BP 156/79
[2021-06-11] MEDS: METFORMIN 500 MG TABLET PO SCH ×2 (08:47→17:15)
[2021-06-11] MEDS: PANTOPRAZOLE 40 MG TABLET.DR PO SCH (08:47)
[2021-06-11] MEDS: ATENOLOL 25 MG TABLET PO SCH (09:21)
[2021-06-11] MEDS: FLUOXETINE HCL 20 MG CAPSULE PO SCH (09:21)
[2021-06-11] MEDS: OLANZAPINE ZYDIS 5 MG TAB.RAPDIS PO SCH ×2 (09:21→16:36)
[2021-06-11] MEDS: FOLIC ACID 1 MG TABLET PO SCH (09:21)
[2021-06-11] MEDS: GABAPENTIN 100 MG CAPSULE PO SCH ×3 (09:21→16:36)
--- NOTE | 2021-06-11 09:38 | NUR ---
BEBO Family Contact: BEBO spoke with patient's sister Harshad ([phone]) and discussed at this time pt does not want to go to a SNF and wants to return back home. Sister stated she would talk to pt in regards to not being able to come back home.
[2021-06-11 16:00] VITALS: BP 116/64
[2021-06-11 20:00] VITALS: BP 113/65
[2021-06-11] MEDS: ATORVASTATIN 10 MG TABLET PO SCH (21:12)
[2021-06-12] MEDS: PANTOPRAZOLE 40 MG TABLET.DR PO SCH (07:54)
[2021-06-12 08:00] VITALS: BP 122/83
[2021-06-12] MEDS: METFORMIN 500 MG TABLET PO SCH ×2 (08:14→17:26)
[2021-06-12] MEDS: FLUOXETINE HCL 20 MG CAPSULE PO SCH (08:45)
[2021-06-12] MEDS: GABAPENTIN 100 MG CAPSULE PO SCH ×3 (08:46→16:20)
[2021-06-12] MEDS: FOLIC ACID 1 MG TABLET PO SCH (08:46)
[2021-06-12] MEDS: ATENOLOL 25 MG TABLET PO SCH (08:46)
[2021-06-12] MEDS: OLANZAPINE ZYDIS 5 MG TAB.RAPDIS PO SCH ×2 (08:47→16:20)
[2021-06-12 16:00] VITALS: BP 130/74
[2021-06-12 20:00] VITALS: BP 127/78
[2021-06-12] MEDS: ATORVASTATIN 10 MG TABLET PO SCH (21:08)
[2021-06-12] MEDS: ACETAMINOPHEN 325 MG TABLET PO PRN (21:12)
[2021-06-13 08:00] VITALS: BP 115/60
[2021-06-13] MEDS: OLANZAPINE ZYDIS 5 MG TAB.RAPDIS PO SCH ×2 (08:57→17:11)
[2021-06-13] MEDS: PANTOPRAZOLE 40 MG TABLET.DR PO SCH (08:57)
[2021-06-13] MEDS: FLUOXETINE HCL 20 MG CAPSULE PO SCH (08:57)
[2021-06-13] MEDS: GABAPENTIN 100 MG CAPSULE PO SCH ×3 (08:57→17:11)
[2021-06-13] MEDS: METFORMIN 500 MG TABLET PO SCH ×2 (08:57→17:12)
[2021-06-13] MEDS: FOLIC ACID 1 MG TABLET PO SCH (08:57)
[2021-06-13] MEDS: ATENOLOL 25 MG TABLET PO SCH (08:58)
--- NOTE | 2021-06-13 11:40 | NUR ---
BEBO Coordination of Care: Patient referred for intake evaluation (psychiatry) at [facility] located at [address] [place] [address]; ([phone]) on June 19 at 1:30PM via telehealth scheduled by officer of the day.
--- NOTE | 2021-06-13 14:23 | NUR ---
BEBO Coordination of Care: Patient will follow up with (Realtime Court Reporter) Dr. Vega located at [address] [place] [address]; [phone]) on June 23 at 11:15AM.
[2021-06-13 16:00] VITALS: BP 128/67
[2021-06-13] MEDS: ATORVASTATIN 10 MG TABLET PO SCH (20:51)
[2021-06-14 08:00] VITALS: BP 140/84
[2021-06-14] MEDS: PANTOPRAZOLE 40 MG TABLET.DR PO SCH (08:46)
[2021-06-14] MEDS: METFORMIN 500 MG TABLET PO SCH ×2 (08:46→16:35)
[2021-06-14] MEDS: OLANZAPINE ZYDIS 5 MG TAB.RAPDIS PO SCH ×2 (08:47→16:35)
[2021-06-14] MEDS: GABAPENTIN 100 MG CAPSULE PO SCH ×3 (08:47→16:34)
[2021-06-14] MEDS: FLUOXETINE HCL 20 MG CAPSULE PO SCH (08:47)
[2021-06-14] MEDS: ATENOLOL 25 MG TABLET PO SCH (08:47)
[2021-06-14] MEDS: FOLIC ACID 1 MG TABLET PO SCH (08:47)
[2021-06-14 16:00] VITALS: BP 148/75
[2021-06-14 20:00] VITALS: BP 127/63
[2021-06-14 20:20] VITALS: BP 127/63
[2021-06-14] MEDS: ACETAMINOPHEN 325 MG TABLET PO PRN (20:34)
--- NOTE | 2021-06-14 20:37 | NUR ---
RN NOTE: LOWER BACK PAIN PATIENT C/O BILATERAL KNEE PAIN 11/13 & REQUESTED TO GET TYLENOL. PRN TYLENOL 650 MG PO ADMINISTERED. WILL CONTINUE TO MONITOR.
[2021-06-14] MEDS: ATORVASTATIN 10 MG TABLET PO SCH (21:02)
[2021-06-15 08:00] VITALS: BP 103/67
[2021-06-15] MEDS: PANTOPRAZOLE 40 MG TABLET.DR PO SCH (08:54)
[2021-06-15] MEDS: METFORMIN 500 MG TABLET PO SCH ×2 (08:54→17:56)
[2021-06-15] MEDS: FOLIC ACID 1 MG TABLET PO SCH (08:54)
[2021-06-15] MEDS: ATENOLOL 25 MG TABLET PO SCH (08:55)
[2021-06-15] MEDS: OLANZAPINE ZYDIS 5 MG TAB.RAPDIS PO SCH ×2 (08:55→17:56)
[2021-06-15] MEDS: GABAPENTIN 100 MG CAPSULE PO SCH ×3 (08:55→17:56)
[2021-06-15] MEDS: FLUOXETINE HCL 20 MG CAPSULE PO SCH (08:55)
[2021-06-15 16:00] VITALS: BP 116/74
[2021-06-15 19:07] LABS: CALCIUM, SERUM 9.2 mg/dL (8.5-10.1); CARBON DIOXIDE 26 mmol/L (21-32); CHLORIDE 104 mmol/L (98-107); CREATININE 3.1 mg/dL (0.6-1.3); GLUCOSE 92 mg/dL (74-106); POTASSIUM 5.2 mmol/L (3.5-5.1); SODIUM SERUM 138 mmol/L (136-145); UREA NITROGEN, BLOOD 48 mg/dL (7-18)
[2021-06-15 19:46] VITALS: BP 114/72
[2021-06-15] MEDS: ATORVASTATIN 10 MG TABLET PO SCH (21:49)
--- NOTE | 2021-06-15 23:24 | NUR ---
RN NOTES : PT. REFUSED WEEKLY SKIN REASSESSMENT AND PHOTOS TAKEN, ENCOURAGED X3 , RISKS AND BENEFITS EXPLINED ,PT. STRONGLY REFUSED , PER PT. MY SKIN IS FINE I DONT WANT ANY PHOTOS ,PT. BEHAVIOR UNCCOERTIVE ,EASILY AGITATED AT THIS TIME.
[2021-06-16] MEDS: PANTOPRAZOLE 40 MG TABLET.DR PO SCH (07:40)
[2021-06-16 08:00] VITALS: BP 133/73
[2021-06-16] MEDS: FLUOXETINE HCL 20 MG CAPSULE PO SCH (08:32)
[2021-06-16] MEDS: Fluoxetine 10 mg capsule PO SCH (08:32)
[2021-06-16] MEDS: FOLIC ACID 1 MG TABLET PO SCH (08:32)
[2021-06-16] MEDS: OLANZAPINE ZYDIS 5 MG TAB.RAPDIS PO SCH ×2 (08:32→16:33)
[2021-06-16] MEDS: GABAPENTIN 100 MG CAPSULE PO SCH ×3 (08:33→16:33)
[2021-06-16] MEDS: ATENOLOL 25 MG TABLET PO SCH (08:33)
[2021-06-16] MEDS: ACETAMINOPHEN 325 MG TABLET PO PRN ×2 (08:33→20:32)
[2021-06-16] MEDS: METFORMIN 500 MG TABLET PO SCH ×2 (08:33→17:07)
--- NOTE | 2021-06-16 08:39 | NUR ---
PATIENT C/O BILATERAL KNEE PAIN 11/13 & REQUESTED TO GET TYLENOL. PRN TYLENOL 650 MG PO ADMINISTERED. WILL CONTINUE TO MONITOR.
[2021-06-16 09:16] LABS: CALCIUM, SERUM 9.3 mg/dL (8.5-10.1); CARBON DIOXIDE 24 mmol/L (21-32); CHLORIDE 105 mmol/L (98-107); CREATININE 2.6 mg/dL (0.6-1.3); GLUCOSE 137 mg/dL (74-106); POTASSIUM 4.5 mmol/L (3.5-5.1); SODIUM SERUM 139 mmol/L (136-145); UREA NITROGEN, BLOOD 46 mg/dL (7-18)
--- NOTE | 2021-06-16 10:30 | NUR ---
BMP ORDER PLACED FOR 06/17/[address] QUINONES.
[2021-06-16 16:00] VITALS: BP 120/76
[2021-06-16 20:13] VITALS: BP 154/85
[2021-06-16] MEDS: ATORVASTATIN 10 MG TABLET PO SCH (21:15)
[2021-06-16] MEDS: ZOLPIDEM TARTRATE 5 MG TABLET PO PRN (21:16)
[2021-06-17 07:07] LABS: CALCIUM, SERUM 9.4 mg/dL (8.5-10.1); CARBON DIOXIDE 25 mmol/L (21-32); CHLORIDE 108 mmol/L (98-107); CREATININE 2.3 mg/dL (0.6-1.3); GLUCOSE 92 mg/dL (74-106); POTASSIUM 5.1 mmol/L (3.5-5.1); SODIUM SERUM 141 mmol/L (136-145); UREA NITROGEN, BLOOD 52 mg/dL (7-18)
[2021-06-17] MEDS: PANTOPRAZOLE 40 MG TABLET.DR PO SCH (07:34)
[2021-06-17] MEDS: METFORMIN 500 MG TABLET PO SCH (07:35)
[2021-06-17 08:00] VITALS: BP 132/77
--- NOTE | 2021-06-17 08:23 | NUR ---
SW Discharge Note: Patient will be discharged home located at [address] [place] [address]; [phone]. Patient will be provided with taxi transportation. Please arrange Taxi transportation. Patients sister Harshad ([phone]) is aware and agreeable with discharge. Patient appears to be alert and oriented x2 and is happy to be going back home. Patient denies suicidal or homicidal ideation. Patient denies visual/auditory hallucinations. Patient will follow up with (Rotary Drier) Dr. Vega located at [address] [place] [address]; [phone]) on June 23 at 11:15AM. Patient referred for intake evaluation (psychiatry) at [facility] located at [facility] [place] [address]: ([phone]) on June 19 at 1:30PM via telehealth. Patient presents with euthymic mood and congruent affect.
[2021-06-17] MEDS: FOLIC ACID 1 MG TABLET PO SCH (09:16)
[2021-06-17 09:17] VITALS: BP 132/77
[2021-06-17] MEDS: Fluoxetine 10 mg capsule PO SCH (09:17)
[2021-06-17] MEDS: ATENOLOL 25 MG TABLET PO SCH (09:17)
[2021-06-17] MEDS: GABAPENTIN 100 MG CAPSULE PO SCH (09:17)
[2021-06-17] MEDS: OLANZAPINE ZYDIS 5 MG TAB.RAPDIS PO SCH (09:18)
[2021-06-17] MEDS: FLUOXETINE HCL 20 MG CAPSULE PO SCH (09:18)
--- NOTE | 2021-06-17 13:45 | NUR ---
Patient has been discharged home located at [address] [place] [address]; [phone]. Patient provided with taxi transportation. Patients sister Harshad ([phone]) is aware and agreeable with discharge. Patient appears to be alert and oriented x2 and is happy to be going back home. Patient denies suicidal or homicidal ideation. Patient denies visual/auditory hallucinations. Patient presents with euthymic mood and congruent affect. Medications reviewed and prescriptions given. Pt's [facility] pharmacy contacted and confirmed home meds. Discussed after care at home. Given copy of after care plan and belongings returned. Pt escorted to main [facility] by staff. Pt placed in taxi transport. Pt left facility at 1335.
== END 2021-06-17 13:35 | disposition home or self-care (01) | DRG 885 ==
LOC: ER 15:26 → GPS 18:21
PROVIDERS: ADMIT Psychiatry & Neurology Psychiatry; ATTEND Nurse Practitioner Acute Care
DX: F25.1 Schizoaffective disorder, depressive type (principal); N17.0 Acute kidney failure with tubular necrosis; N18.9 Chronic kidney disease, unspecified; E11.65 Type 2 diabetes mellitus with hyperglycemia; F23 Brief psychotic disorder; I12.9 Hypertensive chronic kidney disease with stage 1 through stage 4 chronic kidney disease, or unspecified chronic kidney disease; E11.22 Type 2 diabetes mellitus with diabetic chronic kidney disease; Z79.84 Long term (current) use of oral hypoglycemic drugs; Z79.899 Other long term (current) drug therapy; E78.5 Hyperlipidemia, unspecified; K21.9 Gastro-esophageal reflux disease without esophagitis; Z73.6 Limitation of activities due to disability; D63.8 Anemia in other chronic diseases classified elsewhere
CPT/HCPCS: 36415; 80048-TC; 80053-TC; 80061-TC; 80076-TC; 81001; 82570-TC; 82962-TC; 84155-TC; 84300-TC; 85025-TC; 87081-TC; 97112-TC; 97530-TC; C9803; G0480